=== PATIENT | female | born 1965 ===

== ENCOUNTER 2017-12-16 06:49 | Day surgery (SDC) | payer OTHER ==
[~2017-12-16] VITALS: Ht 170.2 cm; Wt 88.0 kg
[2017-12-16] VITALS (10 sets, daily range): BP systolic 94–130; BP diastolic 52–68
[2017-12-16] MEDS ORDERED: GREEN TEA1 EACH PO (07:16)
--- NOTE | 2017-12-16 08:26 | Anethesia Preoperative Eval ---
Anesthesia Pre-op PMH/ROS General Date of Evaluation: Dec 16, 2017 Time of Evaluation: 08:26 ASA Score: ASA 2 Mallampati Score Class I : Soft palate, uvula, fauces, pillars visible Class II: Soft palate, uvula, fauces visible Class III: Soft palate, base of uvula visible Class IV: Only hard plate visible Mallampati Classification: Class I Allergies: Coded Allergies: EGG (Verified Allergy, Severe, 12/15/17) Uncoded Allergies: General Anesthetic (Adverse Reaction, Severe, Nausea/Vomiting , 12/15/17) Anesthesia Pre-op Phys. Exam Physician Exam Last Vital Signs Date Time Temp Pulse Resp B/P (MAP) Pulse Ox O2 Delivery O2 Flow Rate FiO2 12/16/17 07:14 98.0 65 18 130/ 98 Room Air 98.0 Airway Exam Mallampati Score: Class II Akash Mulligan MD Dec 16, 2017 08:26
[2017-12-16] MEDS ORDERED: LR 1000ml ONE (09:00)
[2017-12-16] MEDS ORDERED: Propofol 200mg/20ml IV ONE (09:00)
--- NOTE | 2017-12-16 09:08 | Short Stay Surgery H&P ---
History of Present Illness History of Present Illness Chief Complaint Abdominal pains/Gerds HPI Ruby Chapman is a 52 year old female who was admitted on for Abdominal Pain /Gerds Patient History Allergies: Coded Allergies: EGG (Verified Allergy, Severe, 12/15/17) Uncoded Allergies: General Anesthetic (Adverse Reaction, Severe, Nausea/Vomiting , 12/15/17) Past Surgeries: (1) Previous section Medication History Scheduled Green Tea Lowry Extract (Green Tea), 1 EACH PO DAILY, (Reported) Review of Systems Cardiovascular: Reports: no symptoms Respiratory: Reports: no symptoms Skeletal: Reports: trauma Gastrointestinal: Reports: gastro esophageal reflux disease Genitourinary: Reports: no symptoms Neurologic: Reports: no symptoms Endocrine: Reports: no symptoms Hematologic: Reports: no symptoms Physical Exam Vital Signs Last Vital Signs Date Time Temp Pulse Resp B/P (MAP) Pulse Ox O2 Delivery O2 Flow Rate FiO2 12/16/17 07:14 98.0 65 18 130/ 98 Room Air 98.0 Skin: normal HENT: normal Heart: normal Lungs: normal Abdomen: abnormal Extremities: normal Genitourinary: normal Plan Plan of Care Upper and the lower GI endoscopy Preop Interventions None. Summary of Findings See the reports. Attestation Are the patient's medical conditions optimized for surgery? Attestation Response: yes Derick Novak MD Dec 16, 2017 09:08
--- NOTE | 2017-12-16 09:09 | Pre-Procedure Note/Attestation ---
Pre-Procedure Note/Attestation Complete Prior to Procedure Planned Procedure: left Procedure Narrative: Examination of the upper and the lower GI tract with biopsy Indications for Procedure Pre-Operative Diagnosis: R/O Peptic Ulcer/colitis. /Gastritis Attestation I attest that I discussed the nature of the procedure; its benefits; risks and complications; and alternatives (and the risks and benefits of such alternatives ), prior to the procedure, with the patient (or the patient's legal marketing sales representative). I attest that, if there was a reasonable possibility of needing a blood transfusion, the patient (or the patient's legal marketing sales representative) was given the [place] Department [employer] standardized written summary, pursuant to the [place] Blood Safety Act ([place] Health and Safety Code # 1645, as amended). I attest that I re-evaluated the patient just prior to the surgery and that there has been no change in the patient's H&P, except as documented below: Derick Novak MD Dec 16, 2017 09:09
--- NOTE | 2017-12-16 09:45 | Endoscopy Procedure Note ---
Endoscopy Procedure Note General Indication for Procedure: Abdominal pains/GERds/rectal bleeding/constipation Procedures Performed: EGD - Moderate Gastritis with submucosal hemorrhagic spots in greator curvator biopsied. Pyloric edema., colonoscopy - Poor colon prep. Highly redundant left colon. Minimal internal hemorrhoids. Specimen: yes Pt Tolerated Procedure Well: Yes Estimated Blood Loss: none Anesthesia Anesthesiologist: Dr. Mulligan Anesthesia: moderate sedation Medications Medication Given: see anesthesia record Inserted Devices Implant(s) used?: No Quality Quality of Bowel Preparation: Poor Did scope reach the cecum?: Yes Was there any complications?: No GI Core Measures 50 yrs or older w/o bx or poly: Yes 10yrs. F/U not recommended: Yes If not recommended, why?: 10 yrs. F/U needed: Yes Med reason:<3 yrs.: System Reason:<3 yrs.: Last colonoscopy >= to 3yrs: Yes Derick Novak MD Dec 16, 2017 09:45
--- NOTE | 2017-12-16 09:46 | Discharge Instructions ---
Discharge Instructions Discharge Instructions Follow up with: See the docotor after 2 weeks in the office. For Congestive Heart Failure Reminder Report to your physician any weight gain of 5 pounds or more in one week. Derick Novak MD Dec 16, 2017 09:46
--- NOTE | 2017-12-16 09:49 | Immediate Post-Op Evaluation ---
Immediate Post-Op Evalulation Immediate Post-Op Evalulation Procedure: egd colon Date of Evaluation: Dec 16, 2017 Time of Evaluation: 09:49 Nausea: No Vomiting: No Akash Mulligan MD Dec 16, 2017 09:49
--- NOTE | 2017-12-16 18:30 | Operative Note - Dictated ---
DATE OF OPERATION: 12/16/2017 SURGEON: Derick Novak M.D. PROCEDURE: Upper GI endoscopy, esophagogastroduodenoscopy with biopsy. PREOPERATIVE DIAGNOSIS: Abdominal pain, history of gastroesophageal reflux. POSTOPERATIVE DIAGNOSES: 1. Moderate gastritis with submucosal hemorrhages over the greater curvature of the stomach biopsied. 2. Edema of pyloric channel. MEDICATION USED: Per Dr. Mulligan, anesthesiologist. INSTRUMENT: GIF Olympus upper GI video endoscope. DESCRIPTION OF PROCEDURE: The patient, after arriving in endoscopy unit, was told about risks and benefits of the procedure, which she accepted and signed informed consent. At this time, she was put on the left lateral decubitus position. After adequate IV sedation, the scope was gently passed through the cricopharyngeal area, was lodged into the upper esophagus, and gradually advanced towards gastroesophageal junction. The entire length of the esophagus looked normal and there was no evidence of any abnormality such as tumors, polyps, stricture. GE junction also looked normal without Rios's or hiatal hernia. At this time, the scope was advanced into the stomach. Gastric cavity was distended. It was revealed that there was [id number] mostly inflammatory process consistent with moderate gastritis over the gastric mucosa flexure with areas of localized submucosal hemorrhages over the greater curvature folds. One of these areas over the greater curvature fold was biopsied. Subsequently, the scope was passed through the antrum, which was also involved in an inflammatory process with gastritis as I mentioned. The pyloric channel was also edematous, however, the scope was passed through it and the first and second portion of duodenum were found to be completely normal. At this time, the scope was pulled back into the stomach. A retroflexion maneuver was applied. The area of the gastroesophageal junction was examined and no other pathology found. Finally, the scope was pulled out and the procedure was terminated. The patient tolerated the procedure well. Derick Novak M.D. DR: DANELLE JOB#: [id number] CC:
--- NOTE | 2017-12-16 18:30 | History and Physical Report ---
DATE OF ADMISSION: 12/16/2017 HISTORY OF PRESENT ILLNESS: The patient is a 52-year-old female who is being seen prior to undergoing the procedure of upper and lower GI endoscopy for which she has been scheduled to receive for evaluation of gastrointestinal conditions that she has suffered subsequent to work injury. The patient basically reported that she is experiencing discomfort and pain over the upper part of the abdomen and this started after she was started on nonsteroidal anti-inflammatory agents and strong pain medications and narcotics. These medications were given because of her injuries at work, which required anti-inflammatory agents for relieving the pain. The patient also complains of pain mostly located over the epigastric and right upper part of the abdomen radiating towards the right lower side. She reported that the pains are of moderate intensity as well. The applicant also, as I mentioned, is currently taking naproxen because of these pains that she has over the different parts of her musculoskeletal sections because of the injury that she has suffered from work. She does have mild heartburn, however. She denied having any vomiting blood and in the past she has had some rectal bleeding, which has not been diagnosed as to the etiology. 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 Subsequently, she was seen by multiple physicians and received treatment and diagnosed to have cervical disc disorder with radiculopathy and was started on multiple medications including NSAIDs and analgesics. PAST MEDICAL HISTORY: Basically, she denies any medical conditions including hyperlipidemia, hypertension, arthritis, etc. PAST SURGICAL HISTORY: She has had left shoulder fracture. MEDICATIONS: The patient is currently taking naproxen, hydrocodone, and Percocet for pain that she has suffered subsequent to her work injury. ALLERGIES: None. HABITS: The applicant denies drinking alcohol or smoking cigarettes. REVIEW OF SYSTEMS: Basically, history of present illness. PHYSICAL EXAM: GENERAL: Reveals an alert and oriented female, does not seem to be in any acute distress. She looks somewhat overweight. She answers the questions properly. VITAL SIGNS: Stable. HEENT: Normocephalic. Pupils equal in size and reactive to light and accommodation. No jaundice. NECK: Supple. No JVD or thyromegaly. CHEST: Clear to auscultation and percussion. No rales or rhonchi. HEART: S1 and S2 normal. Regular rhythm. No gallops or murmur. ABDOMEN: Soft, but there are some areas of tenderness over the upper part of the abdomen and the right side of the abdomen as well, but there is no hepatosplenomegaly and no palpable mass. EXTREMITIES: Unremarkable. NEUROLOGIC: Unremarkable. PRELIMINARY IMPRESSION: 1. Epigastric pain of uncertain etiology, rule out gastroesophageal acid reflux aggravated by NSAID medication. Rule out NSAID gastropathy, rule out peptic ulcer disease, gastritis, and duodenal ulcer. 2. Generalized abdominal pain of uncertain etiology, rule out colitis versus irritable bowel syndrome. 3. History of rectal bleeding of uncertain etiology, rule out colitis versus polyps, tumors, and hemorrhoids. 4. History of bodily injury, work related. RECOMMENDATIONS: The applicant seems to be stable at this time to undergo the procedures of upper and lower GI endoscopy for which she has been scheduled. She understands the risks and benefits and will sign the consent. Said Lula Novak DR: ANDRIA JOB#: [id number] CC:
--- NOTE | 2017-12-16 20:15 | Procedure Note ---
DATE OF PROCEDURE: 12/16/2017 SURGEON: Derick Novak M.D. PROCEDURE: Total colonoscopy. PREOPERATIVE DIAGNOSES: 1. Abdominal pain. 2. Constipation. 3. Rectal bleeding. POSTOPERATIVE DIAGNOSES: 1. Highly redundant left colon with poor colonic preparation. 2. Minimal internal hemorrhoid, otherwise completely normal total colonoscopy up to the base of the cecum as examined. MEDICATIONS USED: Per Dr. Mulligan, anesthesiologist. INSTRUMENT: GIF Olympus videocolonoscope. DESCRIPTION OF PROCEDURE: The patient, after arriving endoscopy unit, was told about risks and benefits of the procedure, which she accepted and signed informed consent. At this time, she was put on the left lateral decubitus position. After adequate IV sedation, the scope was gently passed through the anal area, which revealed evidence of minimal internal hemorrhoids and nonfriable and no great significance. The retroflexion maneuver was also applied in the rectum, which revealed normal findings in the rectum. At this time, the scope was advanced gradually into rectosigmoid area, which was filled with liquidy stool, suggesting the poor colonic preparation. However, there was no any evidence of gross pathology such as polyps, tumors, ulcers, etc. The left colon was also highly redundant and significant amount of time was spent to pass through it. However, it looked to be completely normal. Upon reaching to the splenic flexure, the scope was guided into the transverse colon, hepatic flexure, and finally reached to the base of the cecum. All these areas remained to be normal. At this point, within 6 minutes, the scope was gradually withdrawn and no other pathology was found. The patient tolerated the procedure well and left the endoscopy room in a good condition. Derick Novak M.D. DR: ANDRIA JOB#: [id number] CC:
== END 2017-12-16 11:25 | disposition home or self-care (01) ==
LOC: SDS 06:49
DX: R10.9 Unspecified abdominal pain (principal); K21.9 Gastro-esophageal reflux disease without esophagitis; K29.70 Gastritis, unspecified, without bleeding; K59.00 Constipation, unspecified; K64.8 Other hemorrhoids; Z91.012 Allergy to eggs; Z88.8 Allergy status to other drugs, medicaments and biological substances
CPT/HCPCS: 43239; 45378; J2704; J7120; 94003; 94150